=== PATIENT | female | born 1935 | race Caucasian/White ===

== ENCOUNTER 2019-12-01 04:41 | Day surgery (SDC) | payer OTHER, BC ==
[2019-12-01 07:39] VITALS: BMI 42.4
[2019-12-01 08:37] VITALS: TEMP 98
[2019-12-01 09:42] VITALS: BP 128/65; PULSE 74
--- NOTE | 2019-12-07 16:01 | PATH ---
Surgical Pathology Report Patient Name: HÉCTOR DUNHAM [facility]. Rec. #: [id number] /Age/Gender: 1935 (Age: 84) / F Account: [id number] Location: U-ENDOSCOPY Taken: 12/01/2019 Received: 12/01/2019 Reported: 12/02/2019 Physicians: Paula Espinal M.D. Specimen(s) Received A: DESCENDING COLON POLYPS B: PROXIMAL TRANSVERSE COLON POLYP C: DISTAL TRANSVERSE COLON POLYPS Clinical History Family history of colon cancer Postoperative diagnosis: Diverticulosis, colon polyps Final Diagnosis A. DESCENDING COLON, POLYPS, BIOPSY/POLYPECTOMY: TUBULAR ADENOMA. HYPERPLASTIC POLYP(S). B. PROXIMAL TRANSVERSE COLON, POLYP, POLYPECTOMY: POLYPOID COLONIC MUCOSA WITHOUT SIGNIFICANT PATHOLOGIC FINDINGS. C. TRANSVERSE COLON, POLYPS, BIOPSY/POLYPECTOMY: TUBULAR ADENOMA(S). Electronically Signed Dasia Harris M.D. Gross Description A. Received in formalin, labeled "descending colon polyps" are 3 melo, irregular portions of soft tissue ranging from 0.2-0.5 cm. in greatest dimension. The specimens are submitted in toto in one cassette. B. Received in formalin, labeled "proximal transverse colon polyp biopsy" are 2 melo, irregular portions of soft tissue measuring 0.2 and 0.5 cm. in greatest dimension. The specimens are submitted in toto in one cassette. C. Received in formalin, labeled "distal transverse colon polyps" are 3 melo, irregular portions of soft tissue ranging from 0.3-0.4 cm. in greatest dimension. The specimens are submitted in toto in one cassette. /12/01/2019 saudi12/01/2019
== END 2019-12-01 09:35 | disposition home or self-care (01) ==
LOC: JASU-ENDO 04:41
PROVIDERS: ATTEND Internal Medicine Gastroenterology
PROC: 0DBL8ZX Excision of Transverse Colon, Via Natural or Artificial Opening Endoscopic, Diagnostic (ICD-10-PCS; 2019-12-01)
PROC: 0DBM8ZX Excision of Descending Colon, Via Natural or Artificial Opening Endoscopic, Diagnostic (ICD-10-PCS; principal; 2019-12-01 08:00)
DX: Z12.11 Encounter for screening for malignant neoplasm of colon (principal); Z80.0 Family history of malignant neoplasm of digestive organs; D12.4 Benign neoplasm of descending colon; D12.3 Benign neoplasm of transverse colon; K57.30 Diverticulosis of large intestine without perforation or abscess without bleeding; K64.8 Other hemorrhoids
CPT/HCPCS: 88305-TC

== ENCOUNTER 2021-06-05 11:29 | Inpatient (IN) | payer OTHER, BC ==
[2021-06-05] MEDS ORDERED: VANCOMYCIN HCL 1,500 MG in DEXTROSE 5%-WATER - 500 ML IVPB ONE (13:25)
[2021-06-05] MEDS ORDERED: PIPERACILLIN/TAZOB 4.5 GM 4.5 GM in DEXTROSE 5%-WATER 100 ML IVPB ONE (13:26)
[2021-06-05 14:18] LABS: ALBUMIN 3.7 g/dl (3.4-5.0); BILIRUBIN,TOTAL 0.9 mg/dl (0.2-1); CALCIUM 10.3 mg/dl (8.5-10); CREATININE 0.7 mg/dl (0.55-1.3); TOT PROT 6.4 g/dl (6.4-8.2)
[2021-06-05 15:45] LABS: BASO % 0.5 % (0-2.0); EOS % 2.5 % (0-4.5); HEMATOCRIT 36.2 % (32.4-45.2); LYMPH % 17.1 % (8-40); MCH 30.8 pg (25.7-33.7); MCHC 33.2 g/dl (32.0-36.0); MEAN CELL VOLUME 92.9 fl (80-96); MEAN PLT VOLUME 9.1 fl (7.5-11.1); NEUT % 69.9 % (42.8-82.8); PLATELET COUNT 263 10^3/uL (134-434); RDW 14.1 % (11.6-15.6); WHITE BLOOD COUNT 7.6 K/mm3 (4.0-10.0)
[2021-06-05 20:28] VITALS: BMI 43.9
[2021-06-05] MEDS ORDERED: PIPERACILLIN/TAZOBACTAM 4.5 GM VIAL IVPB ONE (21:34)
[2021-06-05] MEDS ORDERED: DEXTROSE 5%-WATER 100 ML IVPB ONE (21:34)
[2021-06-05] MEDS: ATORVASTATIN CA 10 MG TABLET (FP) PO SCH (21:37)
[2021-06-05] MEDS: PIPERACILLIN/TAZOB 4.5 GM 4.5 GM in DEXTROSE 5%-WATER 100 ML IVPB SCH (21:40)
[2021-06-06] MEDS ORDERED: VANCOMYCIN HCL 1,500 MG in DEXTROSE 5%-WATER - 250 ML IVPB SCH ×2 (02:00→09:00)
[2021-06-06] MEDS: PIPERACILLIN/TAZOB 4.5 GM 4.5 GM in DEXTROSE 5%-WATER 100 ML IVPB SCH ×3 (02:33→19:07)
[2021-06-06 08:14] LABS: CALCIUM 9.7 mg/dl (8.5-10); CREATININE 0.7 mg/dl (0.55-1.3)
[2021-06-06] MEDS ORDERED: DEXTROSE 5%-WATER 100 ML IVPB ONE (09:04)
[2021-06-06] MEDS ORDERED: PIPERACILLIN/TAZOBACTAM 4.5 GM VIAL IVPB ONE (09:04)
[2021-06-06] MEDS: CHOLECALCIFEROL (VIT D3) 1,000 UNIT (25 MCG) TABLET PO SCH (09:09)
[2021-06-06] MEDS: amLODIPine BESYLATE 2.5 MG TABLET (FP) PO SCH (09:10)
[2021-06-06] MEDS: CYANOCOBALAMIN 1,000 MCG TABLET (FP) PO SCH (09:10)
[2021-06-06] MEDS: LOSARTAN POTASSIUM 50 MG TABLET PO SCH (09:10)
[2021-06-06] MEDS: FUROSEMIDE 20 MG TABLET (FP) PO SCH (09:11)
[2021-06-06] MEDS ORDERED: PATIENT'S OWN MEDICATION (NON-FORMULARY) (Losartan Potassium [Losartan Potassium] 100 MG T PO SCH (10:00)
[2021-06-06] MEDS ORDERED: CHOLECALCIFEROL (VIT D3) 400 UNIT (10 MCG) TABLET PO SCH (10:00)
[2021-06-06 11:02] LABS: BASO % 0.4 % (0-2.0); EOS % 2.7 % (0-4.5); HEMATOCRIT 36.1 % (32.4-45.2); HEMOGLOBIN 12.2 GM/dL (10.7-15.3); LYMPH % 18.9 % (8-40); MCH 31.2 pg (25.7-33.7); MCHC 33.8 g/dl (32.0-36.0); MEAN CELL VOLUME 92.3 fl (80-96); MEAN PLT VOLUME 9.3 fl (7.5-11.1); MONO % 9.5 % (3.8-10.2); NEUT % 68.5 % (42.8-82.8); PLATELET COUNT 259 10^3/uL (134-434); RBC 3.91 M/mm3 (3.60-5.2); RDW 14.4 % (11.6-15.6); WHITE BLOOD COUNT 6.3 K/mm3 (4.0-10.0)
[2021-06-06] MEDS ORDERED: DEXTROSE 5%-WATER - 50 ML IVPB ONE (16:40)
[2021-06-06] MEDS ORDERED: PIPERACILLIN/TAZOBACTAM 3.375 GM VIAL IVPB ONE (16:40)
[2021-06-06] MEDS: PIPERACILLIN/TAZOB 3.375 GM 3.375 GM in DEXTROSE 5%-WATER - 50 ML IVPB SCH (16:58)
[2021-06-06] MEDS: ATORVASTATIN CA 10 MG TABLET (FP) PO SCH (21:08)
[2021-06-06] MEDS ORDERED: LACTOBACILLUS ACIDOPHILUS 1 TABLET PO ONE (21:22)
[2021-06-07] MEDS: PIPERACILLIN/TAZOB 3.375 GM 3.375 GM in DEXTROSE 5%-WATER - 50 ML IVPB SCH ×3 (02:47→18:51)
[2021-06-07] MEDS ORDERED: PIPERACILLIN/TAZOBACTAM 3.375 GM VIAL IVPB ONE ×3 (03:28→17:34)
[2021-06-07] MEDS ORDERED: DEXTROSE 5%-WATER - 50 ML IVPB ONE ×3 (03:28→17:34)
[2021-06-07] MEDS: amLODIPine BESYLATE 2.5 MG TABLET (FP) PO SCH (09:30)
[2021-06-07] MEDS: LACTOBACILLUS ACIDOPHILUS 1 TABLET PO SCH (09:30)
[2021-06-07] MEDS: LOSARTAN POTASSIUM 50 MG TABLET PO SCH (09:30)
[2021-06-07] MEDS: CHOLECALCIFEROL (VIT D3) 1,000 UNIT (25 MCG) TABLET PO SCH (09:30)
[2021-06-07] MEDS: FUROSEMIDE 20 MG TABLET (FP) PO SCH (09:30)
[2021-06-07] MEDS: CYANOCOBALAMIN 1,000 MCG TABLET (FP) PO SCH (09:30)
[2021-06-07] MEDS: ENOXAPARIN NA (PORCINE) 40 MG/0.4 ML DISP.SYRIN SQ SCH (14:00)
[2021-06-07] MEDS: ATORVASTATIN CA 10 MG TABLET (FP) PO SCH (21:18)
[2021-06-07] MEDS: COLLAGENASE CLOSTRIDIUM HIST. 30 GRAMS TUBE TP SCH (21:18)
[2021-06-08] MEDS ORDERED: DEXTROSE 5%-WATER - 50 ML IVPB ONE ×4 (02:06→23:53)
[2021-06-08] MEDS ORDERED: PIPERACILLIN/TAZOBACTAM 3.375 GM VIAL IVPB ONE ×4 (02:06→23:53)
[2021-06-08] MEDS: PIPERACILLIN/TAZOB 3.375 GM 3.375 GM in DEXTROSE 5%-WATER - 50 ML IVPB SCH ×3 (03:02→17:23)
[2021-06-08] MEDS: ACETAMINOPHEN 325 MG TABLET (FP) PO PRN (07:12)
[2021-06-08] MEDS: ENOXAPARIN NA (PORCINE) 40 MG/0.4 ML DISP.SYRIN SQ SCH (09:33)
[2021-06-08] MEDS: CHOLECALCIFEROL (VIT D3) 1,000 UNIT (25 MCG) TABLET PO SCH (09:34)
[2021-06-08] MEDS: CYANOCOBALAMIN 1,000 MCG TABLET (FP) PO SCH (09:34)
[2021-06-08] MEDS: LOSARTAN POTASSIUM 50 MG TABLET PO SCH (09:34)
[2021-06-08] MEDS: amLODIPine BESYLATE 2.5 MG TABLET (FP) PO SCH (09:34)
[2021-06-08] MEDS: LACTOBACILLUS ACIDOPHILUS 1 TABLET PO SCH (09:35)
[2021-06-08] MEDS: FUROSEMIDE 20 MG TABLET (FP) PO SCH (09:35)
[2021-06-08] MEDS: COLLAGENASE CLOSTRIDIUM HIST. 30 GRAMS TUBE TP SCH (09:35)
[2021-06-08] MEDS: ATORVASTATIN CA 10 MG TABLET (FP) PO SCH (21:39)
[2021-06-09] MEDS: PIPERACILLIN/TAZOB 3.375 GM 3.375 GM in DEXTROSE 5%-WATER - 50 ML IVPB SCH ×3 (01:18→18:40)
[2021-06-09] MEDS ORDERED: PIPERACILLIN/TAZOBACTAM 3.375 GM VIAL IVPB ONE ×2 (09:49→17:52)
[2021-06-09] MEDS ORDERED: DEXTROSE 5%-WATER - 50 ML IVPB ONE ×2 (09:49→17:52)
[2021-06-09] MEDS: LACTOBACILLUS ACIDOPHILUS 1 TABLET PO SCH (09:55)
[2021-06-09] MEDS: CHOLECALCIFEROL (VIT D3) 1,000 UNIT (25 MCG) TABLET PO SCH (09:55)
[2021-06-09] MEDS: CYANOCOBALAMIN 1,000 MCG TABLET (FP) PO SCH (09:56)
[2021-06-09] MEDS: FUROSEMIDE 20 MG TABLET (FP) PO SCH (09:56)
[2021-06-09] MEDS: LOSARTAN POTASSIUM 50 MG TABLET PO SCH (09:56)
[2021-06-09] MEDS: amLODIPine BESYLATE 2.5 MG TABLET (FP) PO SCH (09:56)
[2021-06-09] MEDS: ACETAMINOPHEN 325 MG TABLET (FP) PO PRN ×2 (09:56→21:46)
[2021-06-09] MEDS: COLLAGENASE CLOSTRIDIUM HIST. 30 GRAMS TUBE TP SCH (10:00)
[2021-06-09] MEDS: ENOXAPARIN NA (PORCINE) 40 MG/0.4 ML DISP.SYRIN SQ SCH (11:14)
[2021-06-09] MEDS: ATORVASTATIN CA 10 MG TABLET (FP) PO SCH (21:46)
[2021-06-10] MEDS ORDERED: PIPERACILLIN/TAZOBACTAM 3.375 GM VIAL IVPB ONE ×2 (00:08→09:17)
[2021-06-10] MEDS ORDERED: DEXTROSE 5%-WATER - 50 ML IVPB ONE ×2 (00:09→09:17)
[2021-06-10] MEDS: PIPERACILLIN/TAZOB 3.375 GM 3.375 GM in DEXTROSE 5%-WATER - 50 ML IVPB SCH ×3 (01:31→17:43)
[2021-06-10] MEDS: LOSARTAN POTASSIUM 50 MG TABLET PO SCH (09:25)
[2021-06-10] MEDS: FUROSEMIDE 20 MG TABLET (FP) PO SCH (09:26)
[2021-06-10] MEDS: amLODIPine BESYLATE 2.5 MG TABLET (FP) PO SCH (09:26)
[2021-06-10] MEDS: CYANOCOBALAMIN 1,000 MCG TABLET (FP) PO SCH (09:26)
[2021-06-10 09:27] LABS: CALCIUM 8.9 mg/dl (8.5-10); CREATININE 0.7 mg/dl (0.55-1.3)
[2021-06-10] MEDS: CHOLECALCIFEROL (VIT D3) 1,000 UNIT (25 MCG) TABLET PO SCH (09:27)
[2021-06-10] MEDS: COLLAGENASE CLOSTRIDIUM HIST. 30 GRAMS TUBE TP SCH (09:29)
[2021-06-10] MEDS: ENOXAPARIN NA (PORCINE) 40 MG/0.4 ML DISP.SYRIN SQ SCH (10:00)
[2021-06-10 10:49] LABS: BASO % 0.6 % (0-2.0); EOS % 4.7 % (0-4.5); HEMATOCRIT 34.5 % (32.4-45.2); HEMOGLOBIN 11.5 GM/dL (10.7-15.3); LYMPH % 21.5 % (8-40); MCH 30.8 pg (25.7-33.7); MCHC 33.3 g/dl (32.0-36.0); MEAN CELL VOLUME 92.5 fl (80-96); MONO % 10.3 % (3.8-10.2); NEUT % 62.9 % (42.8-82.8); PLATELET COUNT 266 10^3/uL (134-434); RBC 3.73 M/mm3 (3.60-5.2); RDW 14.5 % (11.6-15.6); WHITE BLOOD COUNT 6.2 K/mm3 (4.0-10.0)
[2021-06-10] MEDS: LACTOBACILLUS ACIDOPHILUS 1 TABLET PO SCH (17:48)
[2021-06-10] MEDS: ATORVASTATIN CA 10 MG TABLET (FP) PO SCH (21:21)
[2021-06-10] MEDS: ACETAMINOPHEN 325 MG TABLET (FP) PO PRN (21:21)
[2021-06-11] MEDS: PIPERACILLIN/TAZOB 3.375 GM 3.375 GM in DEXTROSE 5%-WATER - 50 ML IVPB SCH ×3 (01:13→18:27)
[2021-06-11] MEDS: COLLAGENASE CLOSTRIDIUM HIST. 30 GRAMS TUBE TP SCH (10:00)
[2021-06-11] MEDS: ENOXAPARIN NA (PORCINE) 40 MG/0.4 ML DISP.SYRIN SQ SCH (10:01)
[2021-06-11] MEDS: LOSARTAN POTASSIUM 50 MG TABLET PO SCH (10:01)
[2021-06-11] MEDS: FUROSEMIDE 20 MG TABLET (FP) PO SCH (10:01)
[2021-06-11] MEDS: CYANOCOBALAMIN 1,000 MCG TABLET (FP) PO SCH (10:01)
[2021-06-11] MEDS: CHOLECALCIFEROL (VIT D3) 1,000 UNIT (25 MCG) TABLET PO SCH (10:01)
[2021-06-11] MEDS: amLODIPine BESYLATE 2.5 MG TABLET (FP) PO SCH (10:01)
[2021-06-11] MEDS: LACTOBACILLUS ACIDOPHILUS 1 TABLET PO SCH (11:04)
[2021-06-11] MEDS: ATORVASTATIN CA 10 MG TABLET (FP) PO SCH (21:33)
[2021-06-11] MEDS: ACETAMINOPHEN 325 MG TABLET (FP) PO PRN (21:33)
[2021-06-12] MEDS: PIPERACILLIN/TAZOB 3.375 GM 3.375 GM in DEXTROSE 5%-WATER - 50 ML IVPB SCH ×3 (03:19→17:34)
[2021-06-12] MEDS ORDERED: DEXTROSE 5%-WATER - 50 ML IVPB ONE ×2 (09:17→17:12)
[2021-06-12] MEDS ORDERED: PIPERACILLIN/TAZOBACTAM 3.375 GM VIAL IVPB ONE ×2 (09:17→17:12)
[2021-06-12] MEDS: amLODIPine BESYLATE 2.5 MG TABLET (FP) PO SCH (09:26)
[2021-06-12] MEDS: ENOXAPARIN NA (PORCINE) 40 MG/0.4 ML DISP.SYRIN SQ SCH (09:26)
[2021-06-12] MEDS: LOSARTAN POTASSIUM 50 MG TABLET PO SCH (09:26)
[2021-06-12] MEDS: FUROSEMIDE 20 MG TABLET (FP) PO SCH (09:27)
[2021-06-12] MEDS: CYANOCOBALAMIN 1,000 MCG TABLET (FP) PO SCH (09:27)
[2021-06-12] MEDS: LACTOBACILLUS ACIDOPHILUS 1 TABLET PO SCH (09:27)
[2021-06-12] MEDS: CHOLECALCIFEROL (VIT D3) 1,000 UNIT (25 MCG) TABLET PO SCH (09:27)
[2021-06-12] MEDS: COLLAGENASE CLOSTRIDIUM HIST. 30 GRAMS TUBE TP SCH (09:28)
[2021-06-12 14:29] VITALS: BP 149/69; PULSE 78; TEMP 98.5
== END 2021-06-12 18:45 | disposition home or self-care (01) | DRG 603 ==
LOC: FER 11:29 → INTOOBSV 19:09 → FM/S 19:09 → OBSVTOIN 21:42 → FM/S 06-10 13:02
PROVIDERS: ADMIT Internal Medicine; ATTEND Nurse Practitioner Acute Care
DX: L03.115 Cellulitis of right lower limb (principal); Z68.41 Body mass index [BMI] 40.0-44.9, adult; I10 Essential (primary) hypertension; K21.9 Gastro-esophageal reflux disease without esophagitis; E66.01 Morbid (severe) obesity due to excess calories; E03.9 Hypothyroidism, unspecified; E78.5 Hyperlipidemia, unspecified; I34.1 Nonrheumatic mitral (valve) prolapse; I73.9 Peripheral vascular disease, unspecified; K57.90 Diverticulosis of intestine, part unspecified, without perforation or abscess without bleeding; B96.5 Pseudomonas (aeruginosa) (mallei) (pseudomallei) as the cause of diseases classified elsewhere; B95.7 Other staphylococcus as the cause of diseases classified elsewhere; Z96.652 Presence of left artificial knee joint; Z96.641 Presence of right artificial hip joint
CPT/HCPCS: 36415; 73610-TC-RT-FY; 73630-TC-RT-FY; 73718-TC-RT; 80048; 80053; 83880; 85025; 86140; 87040; 87070; 87186; 87205; 93005; 97116-GP; 97161-GP; 99285-25; C9803; G0378; U0003; U0005

== ENCOUNTER 2023-08-29 16:33 | Emergency (ER) | payer OTHER, BC ==
[2023-08-29 16:56] VITALS: BP 131/64; PULSE 70; RESP 18; TEMP 98.1; BMI 47.5
== END 2023-08-29 19:11 | disposition home or self-care (01) ==
LOC: FER 16:33
DX: R60.0 Localized edema (principal)
CPT/HCPCS: 93970-TC; 99284-25